=== PATIENT | male | born 1965 | race Caucasian/White ===

== ENCOUNTER 2019-05-01 13:04 | Inpatient (IN) | payer MEDICAID ==
[~2019-05-01] VITALS: Ht 182.9 cm; Wt 84.8 kg
[2019-05-01 13:16] VITALS: Ht 182.9 cm; Wt 84.8 kg
--- NOTE | 2019-05-01 13:29 | NUR ---
PT SITTING UP ON EDGE OF BED, AAOX4 WITH C/O 5/10 EPIGASTRIC PAIN WITH N/V/D AND INCREASED BURPING/GAS X 3 DAYS. PT ALSO WITH C/O DARK STOOLS X 3 WEEKS. PT DENIES ANY FEVER, RESP ILLNESS OR URINARY PROBLEMS AT THIS TIME. PT STATES FEELING 'FULL'. AT BEDSIDE.
[2019-05-01 14:24] LABS: PLATELET COUNT 366 x10^3mcL (130-400)
--- NOTE | 2019-05-01 14:25 | NUR ---
PT OFF OF FLOOR TO CT SCAN VIA GURNEY.
[2019-05-01 14:42] LABS: CALCIUM 8.3 mg/dL (8.5-10.1); CARBON DIOXIDE 30.9 mmol/L (21-32); CHLORIDE SERUM 102 mmol/L (98-107); CREATININE SERUM 1.3 mg/dL (0.7-1.3); GFR1 > 60 mL/min; GLUCOSE SERUM 100 mg/dL (74-106); POTASSIUM SERUM 4.8 mmol/L (3.5-5.1); SODIUM SERUM 138 mmol/L (136-145)
[2019-05-01 14:45] LABS: RED CELL DISTRIBUTION WIDTH 15.2 % (11.5-14.5)
[2019-05-01 14:47] LABS: ALBUMIN 3.3 g/dL (3.4-5.0); ALKALINE PHOSPHATASE 62 U/L (46-116); ALT/SGPT 22 U/L (16-63); AST/SGOT 13 U/L (15-37); BILIRUBIN TOTAL 0.2 mg/dL (0.20-1.00); LIPASE 88 IU/L (73-393); TOTAL PROTEIN, SERUM 7.4 g/dL (6.4-8.2)
--- NOTE | 2019-05-01 14:54 | NUR ---
PT RESTING IN BED WITH EYES CLOSED WITH AT BEDSIDE WITH NO SIGNS OF DISTRESS.
--- NOTE | 2019-05-01 15:15 | NUR ---
PER DR MILLARD, HOLD ON THE NG TUBE FOR NOW. PT RESTING IN BED WITH WITH NO SIGNS OF DISTRESS.
[2019-05-01] MEDS ORDERED: PEPCID20 MG PO (15:28)
--- NOTE | 2019-05-01 16:12 | NUR ---
REPORT GIVEN TO MANUELA BERG.
[2019-05-01 17:04] VITALS: BP 132/77
--- NOTE | 2019-05-01 17:14 | NUR ---
RECEIVED PT FROM ER, PT ADMIT FOR ABD PAIN, SBO. PT IS A/O X4, VERBAL RESPONSIVE. LUNG SOUND CLEAR BILATRAL, NO COUGH, NO SOB, PT DENY ANY CHEST PAIN OR DISCOMFORT. BOWEL SOUND PRESENT ALL 4 QUADRANTS, NO DISTENTION, PT STATE HE STILL HAS BM EVERY DAY BUT DARK AND SMALL, DENY ANY PAIN OR N/V AT THIS MOMENT, PEDAL PULSE PRESENT BOTH FEET, NO EDEMA, IV AT LEFT AC, NO LEAKING, NO INFILTRATION. ALL ADLS ASSIST, ALL NEED MET, CALL LIGHT IN REACH, WILL CONTINUE TO MONITOR.
--- NOTE | 2019-05-01 18:39 | NUR ---
RECIEVED PATIENT FROM RESOURCE NURSE. PATIENT A/O X 4. NO REPORT OF ABD PAIN AT THIS TIME. ADMINISTERED INFLUENZA VACCINE PER EMAR AND AT PATIENT'S REQUEST. PATIENT CURRENTLY RESTING IN BED. BED IN THE LOW POSITION. CALL LIGHT WITHIN REACH. NO REPORT OF DIARRHEA.
--- NOTE | 2019-05-01 19:15 | NUR ---
RECIEVED PT RESTING IN BED WITH NO ACUTE DISTRESS NOTED AT THIS TIME, ASSESSMENT PERFORMED AT THIS TIME, PT IS A/OX4 NO COMPLAINTS OF GARRETT OR DIZZINESS NOTED AT THIS TIME, PT DENIES PAIN OR SOB, ABD SOFT, ROUND, TENDER UPON PALPATION, BOWEL SOUNDS HYPERACTIVE, ALL PT NEEDS ATTENDED TO, SAFETY PRECAUITONS IN PLACE WILL CONTINUE TO MONITOR
[2019-05-01 21:00] VITALS: BP 125/87
--- NOTE | 2019-05-01 23:50 | NUR ---
PT IS RESTING IN BED WITH NO ACUTE DISTRESS NOTED AT THIS TIME, PT WATCHING TV AND DENIES PAIN. ALL PT NEEDS ATTENDED TO, SAFETY PRECAUTIONS IN PLACE, WILL CONTINUE TO MONITOR
[2019-05-02 04:41] VITALS: BP 122/71
--- NOTE | 2019-05-02 05:09 | NUR ---
PT RESTED COMFORTABLY THROUGH THE NIGHT WITH NO ACUTE DISTRESS NOTED AT THIS TIME, PT HAD ONE EPISODE OF PAIN TREATED EFFECTIVELY WITH PRN NORCO, PT STABLE AND HAD NO ISSUES, ALL PT NEEDS ATTENDED TO WILL CONTINUE TO MONITOR AND ENDORSE CARE
[2019-05-02 07:06] LABS: BASOPHIL % 0.9 % (0-2); PLATELET COUNT 299 x10^3mcL (130-400)
--- NOTE | 2019-05-02 07:20 | NUR ---
RECEIVED PT FROM EL RN. PT AA/OX4. NO C/O PAIN AT THIS TIME. NO SOB ON ROOM AIR. NO CHEST PAIN. MED SURG. CALM/COOPERATIVE. DENIES N/V. NO ABD. PAIN AT THIS TIME. STRICT NPO IN PLACE, PT VERBALIZED UNDERSTANDING. AMBULATORY TO RESTROOM GAIT STEADY. VOIDS FREELY. IV WNL TO LAC, IV FLUIDS FLOWING. INSTRUCTED TO USE CALL LIGHT TO CALL FOR ASSISTANCE PRN. PT VERBALIZED UNDERSTANDING. WILL CONT. TO MONITOR.
[2019-05-02 07:34] LABS: CALCIUM 7.8 mg/dL (8.5-10.1); CARBON DIOXIDE 27.2 mmol/L (21-32); CHLORIDE SERUM 104 mmol/L (98-107); CREATININE SERUM 1.3 mg/dL (0.7-1.3); GFR1 > 60 mL/min; GLUCOSE SERUM 81 mg/dL (74-106); MAGNESIUM 2.2 mg/dL (1.8-2.4); PHOSPHOROUS 2.4 mg/dL (2.5-4.9); SODIUM SERUM 136 mmol/L (136-145)
[2019-05-02 07:47] VITALS: BP 113/78
[2019-05-02 10:27] VITALS: BP 113/78
--- NOTE | 2019-05-02 10:48 | NUR ---
PT LAYING IN BED. AA/OX4. TOLERATING CLEAR LIQUID DIET WELL. NO N/V. NO ABD. PAIN. CALM/COOPERATIVE. VISITOR AT BEDSIDE. NO SOB ON ROOM AIR. NO CHEST PAIN. BED IN LOW POSITION. CALL LIGHT WITHIN REACH. WILL CONT. TO MONITOR.
[2019-05-02 12:03] VITALS: BP 128/74
--- NOTE | 2019-05-02 14:22 | NUR ---
PT BEING DISCHARGED TO HOME. AWAKE, ALERT, ORIENTED X4. DENIES PAIN. NO SOB ON ROOM AIR. NO C/O PAIN. NO ABD. PAIN. TOLERATING REGULAR DIET WELL. NO N/V AFTER EATING LUNCH. PT REPORTS BM X2 TODAY. BROWN/FORMED. CALM/COOPERATIVE. DISCHARGE EDUCATION PROVIDED TO PATIENT. INSTRUCTED TO FOLLOW UP WITH PCP WITHIN ONE WEEK OF DISCHARGE. PT VERBALIZED UNDERSTANDING. IV REMOVED FROM LFA, CATHETER IN TACT. PRESSURE APPLIED. SITE WNL. NO REDNESS, NO SWELLING, NO INFILTRATION. PATENT AND FLUSHES WELL. NO GARRETT. NO DIZZINESS. NO FEVER. NO CHILLS. PT AMBULATORY WITH FULL ROM. GAIT STEADY. ACCOMPANIED BY FRIEND. TAKEN TO DISCHARGE LOBBY BY KATHLEEN YUAN.
--- NOTE | 2019-05-02 17:28 | NUR ---
Discount pharmacy card and list to low cost medical clinics given to patient by Sussy Reilly.
== END 2019-05-02 14:33 | disposition home or self-care (01) | DRG 247 ==
LOC: ED 13:04 → MU 15:33
PROVIDERS: Emergency Medicine; ADMIT Family Medicine
DX: K56.600 Partial intestinal obstruction, unspecified as to cause (principal); E44.1 Mild protein-calorie malnutrition; E83.51 Hypocalcemia
CPT/HCPCS: 90658; G0378; J2405; J2543; J3010; Q0092; Q9967